=== PATIENT | male | born 1960 | race Two or more races ===

== ENCOUNTER 2025-03-06 03:13 | Emergency (ER) | payer OTHER ==
[~2025-03-06] VITALS: Ht 177.8 cm; Wt 102.1 kg
[2025-03-06 03:22] VITALS: BP 134/77; TEMP 98.4; O2SAT 96
[2025-03-06] MEDS ORDERED: HYDR453.3 TP (03:25)
== END 2025-03-06 04:03 | disposition home or self-care (01) ==
LOC: ER 03:20
DX: Z02.89 Encounter for other administrative examinations (principal); Z20.7 Contact with and (suspected) exposure to pediculosis, acariasis and other infestations; I10 Essential (primary) hypertension; Z60.2 Problems related to living alone; Z65.3 Problems related to other legal circumstances; W57.XXXA Bitten or stung by nonvenomous insect and other nonvenomous arthropods, initial encounter; Y93.89 Activity, other specified; Y92.89 Other specified places as the place of occurrence of the external cause; Y99.8 Other external cause status